=== PATIENT | female | born 1995 | race American Indian/Alaskan Native ===

== ENCOUNTER 2020-01-25 18:53 | Emergency (ER) | payer SELFPAY ==
[2020-01-25] MEDS ORDERED: levETIRAcetam 1000 MG/NS 0.75% 1,000 MG/100 ML BAG IV ONE (20:09)
--- NOTE | 2020-01-25 20:20 | Emergency Department Report ---
ED Seizure HPI - General Chief Complaint: Seizure Stated Complaint: SEIZURE Time Seen by Provider: 01/25/20 20:09 Source: patient, EMS Mode of arrival: Stretcher Limitations: No Limitations - History of Present Illness Initial Comments: Chief complaint: Seizure HPI: This is a 24-year-old female with history of diabetes mellitus, seizure disorder, schizophrenia, bipolar disorder, arthritis, depression who presents from [facility] for seizure activity. Patient received Ativan 2 mg IM prior to arrival. She states that she has been diagnosed with epilepsy. She currently is not followed by a seizure expert. She cannot recall the name of her previously prescribed seizure medication. According to documentation from [facility], patient is taking Depakote. She now has left upper extremity and left lower extremity numbness. The numbness began while she was awaiting treatment in the emergency department. She denies paralysis. She denies trouble with speech. She denies blurry vision. MD Complaint: seizure -: Sudden, This evening Witnessed:: Yes Trauma: No Seizure History: known seizure disorder Place: other ([facility]) Associated Symptoms: other (Left upper extremity left lower extremity numbness) Treatments Prior to Arrival: benzodiazepines (Ativan 2 mg IM given at [facility]) - Related Data Allergies Allergy/AdvReac Type Severity Reaction Status Date / Time No Known Allergies Allergy Unverified 01/25/20 19:28 ED Review of Systems ROS: Stated complaint: SEIZURE Other details as noted in HPI Comment: All other systems reviewed and negative Constitutional: denies: fever, malaise Respiratory: denies: cough, shortness of breath Gastrointestinal: denies: abdominal pain, nausea, vomiting Neurological: denies: headache, weakness, numbness, paresthesias, confusion, abnormal gait ED Past Medical Hx - Past Medical History Previous Medical History?: Yes Hx Diabetes: Yes Hx Seizures: Yes - Surgical History Additional Surgical History: back surgery - Family History Family history: hypertension, other (schizophrenia) - Social History Smoking Status: Heavy Tobacco Smoker Substance Use Type: None ED Physical Exam - General Limitations: No Limitations General appearance: alert, in no apparent distress - Head Head exam: Present: atraumatic, normocephalic - Eye Eye exam: Present: normal appearance - ENT ENT exam: Present: mucous membranes moist - Neck Neck exam: Present: normal inspection, full ROM - Respiratory Respiratory exam: Present: normal lung sounds bilaterally. Absent: respiratory distress, wheezes, rales, rhonchi - Cardiovascular Cardiovascular Exam: Present: regular rate, normal rhythm, normal heart sounds. Absent: systolic murmur, diastolic murmur, rubs, gallop - GI/Abdominal GI/Abdominal exam: Present: soft, normal bowel sounds. Absent: distended, tenderness, guarding, rebound - Extremities Exam Extremities exam: Present: normal inspection - Neurological Exam Neurological exam: Present: alert, oriented X3 - Expanded Neurological Exam Expanded Patient oriented to: Present: person, place, time Speech: Present: fluid speech Cranial nerves: EOM's Intact: Normal Cerebellar function: Finger to Nose: Normal Sensory exam: Upper Extremity Light Touch: Normal Motor strength exam: RUE: 5, LUE: 5, RLE: 5, LLE: 5 Best Eye Response (Harvest): (4) open spontaneously Best Motor Response (Harvest): (6) obeys commands Best Verbal Response (Geeta): (5) oriented Geeta Total: 15 - Psychiatric Psychiatric exam: Present: normal affect, normal mood - Skin Skin exam: Present: warm, dry, intact, normal color. Absent: rash ED Course Vital Signs 01/25/20 01/25/20 19:23 20:24 Temperature 98.2 F Pulse Rate 103 H 87 Respiratory 15 15 Rate Blood Pressure 136/89 134/96 [Right] O2 Sat by Pulse 98 98 Oximetry ED Medical Decision Making - Lab Data Result diagrams: 01/25/20 20:09 01/25/20 20:09 - Medical Decision Making Ms. Sharp has a history of seizure disorder. I presume her antiepileptic is Depakote listed on JUL. However Depakote may be her psychiatrist choice for mood stabilization. Patient reported numbness. She has normal neurological exam. I do not suspect CVA, intracranial hemorrhage. Patient will be discharged back to [facility]. Critical care attestation.: If time is entered above; I have spent that time in minutes in the direct care of this critically ill patient, excluding procedure time. ED Disposition Clinical Impression: Seizure, History of seizure disorder Disposition: DC/TX-70 ANOTHER TYPE HLTHCARE Is pt being admited?: No Does the pt Need Aspirin: No Condition: Stable Instructions: Recurrent Seizures Adult (ED) Referrals: SANDY LUONG MD [Staff Physician] - 3-5 Days
[2020-01-25 21:04] LABS: Hematocrit 30.8 % (30.3-42.9); Mean Corpuscular HGB Conc 36 % (30-34); Mean Corpuscular Volume 83 fl (79-97); Platelet Count 370 K/mm3 (140-440); Red Blood Count 3.72 M/mm3 (3.65-5.03)
[2020-01-25 21:28] LABS: Blood Urea Nitrogen 9 mg/dL (7-17); Calcium 9.3 mg/dL (8.4-10.2); Hemolysis Index 14
[2020-01-25 21:30] LABS: BUN/Creatinine Ratio 13
[2020-01-26 00:08] VITALS: BP 109/64
== END 2020-01-26 00:08 | disposition other institution (70) ==
LOC: ED 18:53
DX: G40.909 Epilepsy, unspecified, not intractable, without status epilepticus (principal); E11.9 Type 2 diabetes mellitus without complications; F17.200 Nicotine dependence, unspecified, uncomplicated; M19.90 Unspecified osteoarthritis, unspecified site; F25.0 Schizoaffective disorder, bipolar type; F25.1 Schizoaffective disorder, depressive type; Z98.890 Other specified postprocedural states
CPT/HCPCS: 36415; 80048; 82962; 85027; 96374; 99284; J1953

== ENCOUNTER 2020-02-02 19:18 | Emergency (ER) | payer MEDICAID, MEDICARE ==
[2020-02-02] MEDS ORDERED: levETIRAcetam 1000 MG/NS 0.75% 1,000 MG/100 ML BAG IV ONE (20:52)
--- NOTE | 2020-02-02 20:54 | Emergency Department Report ---
ED Seizure HPI - General Stated Complaint: SEIZURE Time Seen by Provider: 02/02/20 20:49 Source: patient, old records reviewed Mode of arrival: Stretcher Limitations: No Limitations - History of Present Illness Initial Comments: Patient is a 24-year-old female that presents emergency room for seizure activity. Patient has a history of seizure and is compliant with her Keppra. Patient is currently staying over at [facility]. Patient has a sitter with her. Patient is fatigued. Patient was able to ambulate from the stretcher to the bed. Patient denies headache. Patient denies chills. Patient denies cough. Patient denies chest pain. Patient denies loss of control of bowel or bladder. Patient denies trauma. Patient denies head injury. The seizure was witnessed by the [facility] staff. Patient denies recent travel. Patient denies recent international travel. Patient denies exposure to the novel coronavirus. Patient denies sick contacts. Patient denies fever and chills. Patient denies cough. Patient denies diarrhea. Patient denies coming in contact with anybody with symptoms of the novel coronavirus. MD Complaint: seizure -: Sudden Description of Episode: loss of consciousness, tonic-clonic movement -: second(s) Witnessed:: Yes Trauma: No Seizure History: known seizure disorder, compliant with medication Place: other (at [facility], ) Possible Precipitating Event: none Associated Symptoms: denies other symptoms, confusion. denies: chest pain, cough, diaphoresis, fever/chills, loss of appetite, malaise, rash, shortness of breath, syncope, weakness, tongue injury, shoulder dislocation Treatments Prior to Arrival: none - Related Data Previous Rx's Medication Instructions Recorded Last Taken Type Sulfamethoxazole/Trimethoprim 1 each PO BID 10 Days #20 tablet 02/02/20 Unknown Rx [Bactrim DS TAB] Allergies Allergy/AdvReac Type Severity Reaction Status Date / Time No Known Allergies Allergy Unverified 01/25/20 19:28 ED Review of Systems ROS: Stated complaint: SEIZURE Other details as noted in HPI Constitutional: denies: chills, fever Eyes: denies: eye pain, eye discharge, vision change ENT: denies: ear pain, throat pain Respiratory: denies: cough, shortness of breath, wheezing Cardiovascular: denies: chest pain, palpitations Endocrine: no symptoms reported Gastrointestinal: denies: abdominal pain, nausea, diarrhea Genitourinary: denies: urgency, dysuria, discharge Musculoskeletal: denies: back pain, joint swelling, arthralgia Skin: denies: rash, lesions Neurological: as per HPI. denies: headache, weakness, paresthesias Psychiatric: denies: anxiety, depression Hematological/Lymphatic: denies: easy bleeding, easy bruising ED Past Medical Hx - Past Medical History Previous Medical History?: Yes Hx Diabetes: Yes Hx Seizures: Yes - Surgical History Past Surgical History?: Yes Additional Surgical History: back surgery - Family History Family history: no significant - Social History Smoking Status: Heavy Tobacco Smoker Substance Use Type: None - Medications Home Medications: Home Medications Medication Instructions Recorded Confirmed Last Taken Type Sulfamethoxazole/Trimethoprim 1 each PO BID 10 Days #20 tablet 02/02/20 Unknown Rx [Bactrim DS TAB] ED Physical Exam - General Limitations: No Limitations General appearance: alert, in no apparent distress - Head Head exam: Present: atraumatic, normocephalic - Eye Eye exam: Present: normal appearance - ENT ENT exam: Present: mucous membranes moist - Neck Neck exam: Present: normal inspection - Respiratory Respiratory exam: Present: normal lung sounds bilaterally. Absent: respiratory distress - Cardiovascular Cardiovascular Exam: Present: regular rate, normal rhythm. Absent: systolic murmur, diastolic murmur, rubs, gallop - GI/Abdominal GI/Abdominal exam: Present: soft, normal bowel sounds - Extremities Exam Extremities exam: Present: normal inspection - Back Exam Back exam: Present: normal inspection - Neurological Exam Neurological exam: Present: alert, oriented X3 - Psychiatric Psychiatric exam: Present: depressed - Skin Skin exam: Present: warm, dry, intact, normal color. Absent: rash ED Course Vital Signs 02/02/20 02/02/20 20:31 21:00 Pulse Rate 111 H Respiratory 24 Rate Blood Pressure 129/86 115/79 O2 Sat by Pulse 95 Oximetry - Reevaluation(s) Reevaluation #1: I discussed all results and clinical findings with patient. I discussed plan of care with patient. Patient agrees with plan of care. Patient is stable for discharge. Patient will be discharged back to her psychiatric facility. Patient given discharge instructions. Patient voiced understanding of discharge instructions. 02/02/20 21:57 02/03/20 02:31 ED Medical Decision Making - Lab Data Result diagrams: 02/02/20 21:04 02/02/20 21:04 - Medical Decision Making Patient is a 24-year-old female that presents emergency room with seizure activity. Patient presented from a local psychiatric facility. Patient has a sitter with her. Patient is on a 1013. Patient did not have any seizure activity in the ER. Patient did not have any confusion in the ER. Patient was amatory immediately upon arrival to the ER. Patient had labs done which were essentially unremarkable except for a UTI on UA. Patient given antibiotics as a prescription. Patient given a gram of Keppra. No further seizure activity noted in the ER. Patient is stable for discharge. Patient will be discharged back to her psychiatric facility. - Differential Diagnosis Seizure, pseudoseizure, seizure activity, dehydration Critical care attestation.: If time is entered above; I have spent that time in minutes in the direct care of this critically ill patient, excluding procedure time. ED Disposition Clinical Impression: Seizure, History of seizure disorder UTI (urinary tract infection) Qualifiers: Urinary tract infection type: acute cystitis Hematuria presence: with hematuria Qualified Code(s): N30.01 - Acute cystitis with hematuria Disposition: DC/TX-70 ANOTHER TYPE HLTHCARE Is pt being admited?: No Does the pt Need Aspirin: No Condition: Stable Instructions: Epilepsy (ED), Recurrent Seizures Adult (ED), Women and Epilepsy (ED) Additional Instructions: Patient is medically cleared to return to her psychiatric facility and continue her rehabilitation. Patient to follow-up with primary care in 2 to 3 days. Patient to follow-up with neurologist in 2 to 3 days. Patient to rest. Patient to increase water. Patient to avoid strenuous exercise or heavy lifting until cleared by neurologist and primary care. Patient to avoid driving. Patient to take Tylenol or ibuprofen as needed for pain. Patient to take meds as directed. Patient to return to the ER if condition worsens, changes or new symptoms arise. Prescriptions: Sulfamethoxazole/Trimethoprim [Bactrim DS TAB] 1 each PO BID 10 Days #20 tablet Referrals: SANDY LUONG MD [Staff Physician] - 2-3 Days Time of Disposition: 21:57
[2020-02-02 21:08] LABS: HCG Qualitative,Urine Negative (Negative)
[2020-02-02 21:11] LABS: Bilirubin,Urine NEG (Negative); Blood,Urine NEG (Negative); Color,Urine Yellow (Yellow); Mucus,Urine FEW /HPF; Protein,Urine <15 mg/dL mg/dL (Negative); Urobilinogen,Urine < 2.0 mg/dL (<2.0)
[2020-02-02 21:19] LABS: Hematocrit 31.7 % (30.3-42.9); Hemoglobin 10.9 gm/dl (10.1-14.3); Mean Corpuscular HGB Conc 34 % (30-34); Mean Corpuscular Volume 83 fl (79-97); Platelet Count 320 K/mm3 (140-440); Red Blood Count 3.81 M/mm3 (3.65-5.03); Red Cell Distribution Width 15.9 % (13.2-15.2)
[2020-02-02 21:20] LABS: Amphetamine Screen,Urine PRESUMPTIVE NEGATIVE; Benzodiazepines Screen,Urine PRESUMPTIVE NEGATIVE; Cannabinoid Screen,Urine PRESUMPTIVE NEGATIVE; Cocaine Screen,Urine PRESUMPTIVE NEGATIVE; Methadone Screen,Urine PRESUMPTIVE NEGATIVE; Opiate Screen,Urine PRESUMPTIVE NEGATIVE
[2020-02-02 21:34] LABS: Alanine Aminotransferase 7 units/L (7-56); Albumin 3.7 g/dL (3.9-5); Blood Urea Nitrogen 10 mg/dL (7-17); Calcium 9.8 mg/dL (8.4-10.2); Hemolysis Index 3
[2020-02-02 21:49] LABS: BUN/Creatinine Ratio 14
[2020-02-02 22:03] VITALS: BP 115/79
[2020-02-02 22:24] LABS: Basophils % (Manual) 0 % (0.0-1.8); RBC Morphology Normal; Total Cells Counted 100
== END 2020-02-03 02:04 | disposition other institution (70) ==
LOC: ED 19:18
DX: R56.9 Unspecified convulsions (principal); N39.0 Urinary tract infection, site not specified; E11.9 Type 2 diabetes mellitus without complications; F17.200 Nicotine dependence, unspecified, uncomplicated; Z98.890 Other specified postprocedural states; Z79.899 Other long term (current) drug therapy
CPT/HCPCS: 36415; 80053; 80307; 81001; 81025; 85007; 85025; 96374; 99285; J1953